=== PATIENT | female | born 1970 | race Caucasian/White ===

== ENCOUNTER → 2021-07-15 | Outpatient (CLI) | payer OTHER ==
--- NOTE | 2021-07-16 03:56 | MR ---
EXAMINATION TYPE: MR shoulder RT wo con DATE OF EXAM: 07/15/2021 COMPARISON: None HISTORY: Rt shoulder pain and discomfort due an injury while moving a mattress in May 2021 Multiplanar multiecho imaging of the right shoulder without contrast. There is thickening and increased signal in the subscapularis tendon near the attachment on the humer al head. There is some fluid around the biceps tendon. Biceps tendon is intact. The glenoid deanna cassandra ear intact. There is mild shoulder joint effusion. There is some mild thickening and increased signal in the supraspinatus tendon over the humeral head. There are small full-thickness tears. There is no retraction. There is some hypertrophic mild spurri ng at the AC joint with minimal subacromial impingement. There is no evidence of a fracture. There is some edema in the anterior aspect of the humeral head consistent with a bone bruise. IMPRESSION: Small full-thickness tear of the supraspinatus tendon. Bone bruise of the anterior humeral head. Shou lder joint effusion. Mild partial tear of the subscapularis tendon with thickening and increased sign al.
== END | disposition home or self-care (01) ==
LOC: RADMRIMAIN 07:39
PROVIDERS: ATTEND Orthopaedic Surgery Sports Medicine
DX: S46.011A Strain of muscle(s) and tendon(s) of the rotator cuff of right shoulder, initial encounter (principal); M25.411 Effusion, right shoulder; X58.XXXA Exposure to other specified factors, initial encounter